=== PATIENT | female | born 1980 | race Caucasian/White ===

== ENCOUNTER 2017-07-03 12:35 | Inpatient (IN) | payer BC, OTHER ==
[2017-07-03 13:22] VITALS: BMI 35.5
[2017-07-03] MEDS ORDERED: TUBERCULIN PPD 5 TU/0.1ML SYRINGE (IN PATIENT USE ONLY) ID ONE (13:45)
[2017-07-03] MEDS ORDERED: ELECTROLYTE-148 SOLN 1,000 ML IV SCH ×2 (13:45→15:00)
[2017-07-03] MEDS ORDERED: CITRIC ACID/SODIUM CITRATE 30 ML UNIT-DOSE CUP PO ONE (13:45)
--- NOTE | 2017-07-03 15:02 | HP ---
Past Medical History - Primary Care Physician PCP:: Juan Jose Sanchez - Admission Chief Complaint: 39 weeks, previous c/s , reaquest of reperat c/s History of Present Illness: 36 yo f g 2 p1001 39 weeks, with previous c/s requesting repeat c/s risks discussed , cx clp, vx -3 mi History Source: Patient Limitations to Obtaining History: No Limitations - Past Medical History ...: 2 ...Para: 1 ...Term: 0 ...: 0 ...Spon : 0 ...Induced : 0 ...Multiple Gestation: 0 ...LMP: 10/01/16 ... Weeks Gestation by Dates: 39.2 ...EDC by Dates: 07/08/17 ...EDC by Sono: 07/08/17 Additional OB History: last baby has tetralogy Heme/Onc: Yes: Anemia - Past Surgical History Past Surgical History: Yes: Hx Myomectomy: No Hx Transabdominal Cerclage: No - Smoking History Smoking history: Never smoked Have you smoked in the past 12 months: No - Alcohol/Substance Use Hx Alcohol Use: No - Social History Usual Living Arrangement: Yes: With Spouse History of Recent Travel: No Home Medications - Allergies Allergies/Adverse Reactions: Allergies Allergy/AdvReac Type Severity Reaction Status Date / Time Sulfa (Sulfonamide Allergy Swelling Verified 07/03/17 13:02 Antibiotics) - Home Medications Home Medications: Ambulatory Orders Vitamins (Sjr) - 1 tab PO DAILY 02/17/14 Review of Systems - Review of Systems Constitutional: reports: No Symptoms Eyes: reports: No Symptoms HENT: reports: No Symptoms Neck: reports: No Symptoms Cardiovascular: reports: No Symptoms Respiratory: reports: No Symptoms Gastrointestinal: reports: No Symptoms Genitourinary: reports: No Symptoms Breasts: reports: No Symptoms Reported Musculoskeletal: reports: No Symptoms Integumentary: reports: No Symptoms Neurological: reports: No Symptoms Endocrine: reports: No Symptoms Hematology/Lymphatic: reports: No Symptoms Psychiatric: reports: No Symptoms Physical Exam - Maternity Vital Signs: Vital Signs Temperature 98.7 F 07/03/17 12:35 Pulse Rate 70 07/03/17 12:35 Respiratory Rate 20 07/03/17 12:35 Blood Pressure 118/72 07/03/17 12:35 O2 Sat by Pulse Oximetry (%) Constitutional: Yes: Well Nourished, No Distress, Calm Eyes: Yes: WNL, Conjunctiva Clear, EOM Intact HENT: Yes: WNL, Atraumatic, Normocephalic Neck: Yes: WNL, Supple, Trachea Midline Cardiovascular: Yes: WNL, Regular Rate and Rhythm Breast(s): Yes: WNL - Abdominal Exam/OB Fundal Height: 40 Number of Fetuses: Single Presentation: Vertex Contractions: Yes Regularity: Irregular Intensity: Unaware Monitor Mode: External Heart Rate Location: [facility] Category: I Accelerations: Uniform Decelerations: None - Vaginal Exam/OB Vaginal Bleediing: No Speculum Exam: No Dilatation (cm): closed Effacement (%): 0 Amniotic Membrane Status: Intact Presentation: Vertex/Position Station: -3 - Physical Exam Musculoskeletal: Yes: WNL Extremities: Yes: WNL Edema: Yes Edema: LLE: Trace, RLE: Trace Deep Tendon Reflex Grade: Normal +2 Hemorrhage Risk Assessment - Risk Factors Medium Risk Factors: Yes: None High Risk Factors: Yes: None Risk Score: 1 Risk Level: Medium Risk Problem List - Problems (1) with 39 completed weeks gestation Code(s): Z3A.39 - 39 WEEKS GESTATION OF (2) Previous section complicating , antepartum condition or complication Code(s): O34.219 - MATERNAL CARE FOR UNSP TYPE SCAR FROM PREVIOUS DEL Assessment/Plan repeat c/s , rba discussed , discussed
[2017-07-03] MEDS ORDERED: ONDANSETRON 4 MG/2 ML VIAL IVPB PRN (15:20)
[2017-07-03] MEDS ORDERED: IBUPROFEN 600 MG TABLET (FP) PO PRN (15:20)
[2017-07-03] MEDS ORDERED: oxyCODONE HCL 5 MG TABLET PO PRN ×2 (15:46)
[2017-07-03] MEDS ORDERED: METHYLERGONOVINE MALEATE 0.2 MG/1 ML AMP IM PRN (15:46)
[2017-07-03] MEDS ORDERED: diphenhydrAMINE HCL 25 MG CAPSULE (FP) PO PRN (15:46)
[2017-07-03] MEDS ORDERED: BENZOCAINE 28 GM HEMORRHOIDAL OINTMENT PR PRN (15:46)
[2017-07-03] MEDS ORDERED: BENZOCAINE 20% 57 GM BOTTLE TP PRN (15:46)
[2017-07-03] MEDS ORDERED: WITCH HAZEL 50% (TUCKS) 40 PAD/JAR PAD TP PRN (15:46)
[2017-07-03] MEDS ORDERED: OXYTOCIN 20 UNITS in 0.9% NS 1,000 ML IV SCH (16:00)
[2017-07-03] MEDS ORDERED: DEXTROSE 5%-LACTATED RINGERS 1,000 ML IV SCH (16:00)
[2017-07-03] MEDS: IBUPROFEN 800 MG/8 ML IJ IVPB PRN (16:47)
[2017-07-03] MEDS ORDERED: CEFAZOLIN (PRE-DOCKED) 50 ML IVPB SCH (18:00)
[2017-07-03] MEDS ORDERED: CEFAZOLIN 1 GM in DEXTROSE 5%-WATER - 50 ML IVPB SCH (18:17)
[2017-07-03] MEDS ORDERED: DEXTROSE 5%-WATER - 50 ML IVPB ONE (20:48)
[2017-07-03] MEDS ORDERED: ceFAZolin SODIUM 1 GM VIAL ONE (20:48)
[2017-07-03] MEDS: CEFAZOLIN 1 GM in DEXTROSE 5%-WATER - 50 ML IVPB SCH ×2 (20:52→22:11)
[2017-07-04] MEDS: IBUPROFEN 800 MG/8 ML IJ IVPB PRN (05:03)
[2017-07-04 08:35] LABS: BASOPHIL 1.4 % (0-2.0); MCH 24.3 pg (25.7-33.7); MEAN CELL VOLUME 76.1 fl (80-96); MEAN PLT VOLUME 7.3 fl (7.5-11.1); NEUTROPHILS 82.4 % (42.8-82.8); PLATELET COUNT 213 K/MM3 (134-434); RDW 16.5 % (11.6-15.6); WHITE BLOOD COUNT 11.9 K/mm3 (4.0-10.0)
--- NOTE | 2017-07-04 08:48 | PN ---
Progress Note (short form) - Note Progress Note: Anesthesia postop note 36 y/o F s/p spinal anesthesia duramorph for section POD#1, vss, aaox3, pain well controlled overnight, sensorymotor intact distally No anesthesia complications.
--- NOTE | 2017-07-04 09:06 | OP ---
DATE OF OPERATION: 07/03/2017 PREOPERATIVE DIAGNOSIS: , 39-week gestation, previous section, request of repeat section. POSTOPERATIVE DIAGNOSIS: , 39-week gestation, previous section, request of repeat section. PROCEDURE: Repeat low segment transverse section. SURGEON: Twyla Hardy MD HELPER [employer]ABRICATION: [place] George ANESTHESIA: Spinal. ANESTHESIOLOGIST: Suresh Smalls MD ESTIMATED BLOOD LOSS: 500 mL. FINDINGS: Live baby boy, 9, 9, ROT position. OPERATION: The patient was taken to the operating room, had adequate spinal anesthesia. Abdomen and perineum were prepped and draped. Pfannenstiel abdominal skin incision was made. Abdominal wall was cut layer by layer until peritoneum was exposed and incised. Upon entering the abdominal cavity, lower uterine segment was identified, and uterovesical fold of peritoneum was established, bladder was pushed down. Then, with the lower blade of the [place] retractor in the pelvis, a low transverse uterine incision was made. Amniotic sac was entered. Light meconium amniotic fluid was seen. Head delivered, nasopharynx was suctioned, and live baby boy was delivered without any difficulty. Placenta was delivered manually. Uterine cavity was cleaned of all remaining tissue. Uterine incision was closed in 2 layers, 1st layer with 0 Biosyn continuous suture, the 2nd layer with 0 Biosyn imbricating the 1st layer. Bladder flap was closed with 0 Biosyn continuous suture. Both tubes and ovaries were checked, were normal. No active bleeding was seen. All the lap pad, sponge, and instrument counts were correct. Then, peritoneum was closed with 0 Biosyn continuous suture, muscles were brought together with interrupted sutures of 0 Biosyn, fascia was closed with 0 Biosyn continuous suture, subcutaneous fat with interrupted suture of 0 Biosyn, and the skin was closed with 4-0 Biosyn subcuticular continuous suture. Patient tolerated the procedure well, left the OR in good condition. TWYLA HARDY M.D. [id number]
[2017-07-04] MEDS ORDERED: DEXTROSE 5%-WATER - 50 ML IVPB ONE (09:57)
[2017-07-04] MEDS ORDERED: ceFAZolin SODIUM 1 GM VIAL ONE (09:58)
[2017-07-04] MEDS ORDERED: DIPHTH,PERTUSS(ACELL),TET 0.5 ML DISP.SYRIN IM ONE ×2 (10:00→14:00)
[2017-07-04] MEDS: ENOXAPARIN NA (PORCINE) 40 MG/0.4 ML DISP.SYRIN SQ SCH (10:10)
[2017-07-04] MEDS: CEFAZOLIN 1 GM in DEXTROSE 5%-WATER - 50 ML IVPB SCH (10:10)
[2017-07-04] MEDS: ACETAMINOPHEN 325 MG TABLET (FP) PO PRN ×2 (12:07→21:36)
[2017-07-04] MEDS: SIMETHICONE 80 MG TAB.CHEW (FP) PO PRN ×3 (12:07→21:36)
[2017-07-04] MEDS ORDERED: BISACODYL 10 MG SUPP.RECT RC PRN (15:47)
[2017-07-04] MEDS: IBUPROFEN 600 MG TABLET (FP) PO PRN ×2 (16:20→21:37)
[2017-07-05] MEDS: IBUPROFEN 600 MG TABLET (FP) PO PRN ×4 (01:41→17:16)
[2017-07-05] MEDS: SIMETHICONE 80 MG TAB.CHEW (FP) PO PRN ×4 (01:41→17:15)
[2017-07-05] MEDS: ACETAMINOPHEN 325 MG TABLET (FP) PO PRN ×4 (01:41→17:17)
--- NOTE | 2017-07-05 08:27 | PN ---
Post Progress Note - Subjective Subjective: No complaints. Doing well. The pain is well controlled. Post Day: 2 Type of Delivery: Repeat C/S Vital Signs: Vital Signs Temperature 98.2 F 07/04/17 22:00 Pulse Rate 85 07/04/17 22:00 Respiratory Rate 20 07/04/17 22:00 Blood Pressure 100/75 07/04/17 22:00 O2 Sat by Pulse Oximetry (%) 100 07/03/17 16:40 Breast Exam: Yes: Soft Uterus: Yes: Fundus Firm, Fundus below umbilicus, Non-tender Incision: Yes: Sutures intact Abdomen/GI: Yes: Abdomen soft, Passing flatus, Tolerating PO Lochia: Yes: Rubra Lochia, amount: Small Extremities: Yes: Calves non-tender, Edema (trace bilaterally) Perineum: Yes: Intact Activity: Ambulating - Labs Labs: CBC WBC 11.9 K/mm3 (4.0-10.0) H 07/04/17 08:00 RBC 3.68 M/mm3 (3.60-5.2) 07/04/17 08:00 Hgb 9.0 GM/dL (10.7-15.3) L D 07/04/17 08:00 Hct 28.0 % (32.4-45.2) L 07/04/17 08:00 MCV 76.1 fl (80-96) L 07/04/17 08:00 MCH 24.3 pg (25.7-33.7) L 07/04/17 08:00 MCHC 32.0 g/dl (32.0-36.0) 07/04/17 08:00 RDW 16.5 % (11.6-15.6) H 07/04/17 08:00 Plt Count 213 K/MM3 (134-434) D 07/04/17 08:00 MPV 7.3 fl (7.5-11.1) L 07/04/17 08:00 Neutrophils % 82.4 % (42.8-82.8) 07/04/17 08:00 Lymphocytes % 9.8 % (8-40) D 07/04/17 08:00 Monocytes % 5.4 % (3.8-10.2) 07/04/17 08:00 Eosinophils % 1.0 % (0-4.5) 07/04/17 08:00 Basophils % 1.4 % (0-2.0) D 07/04/17 08:00 Assessment/Plan 36yo P2 s/p repeat LT C/S, doing well stable, afebrile. She is asymptomatic for anemia care instructions reviewed. Breast feeding discussed. Continue routine postop care. Ambulation encouraged.
[2017-07-05] MEDS: ENOXAPARIN NA (PORCINE) 40 MG/0.4 ML DISP.SYRIN SQ SCH (09:54)
[2017-07-05] MEDS ORDERED: SENNOSIDES/DOCUSATE COMBO (SENNA PLUS) TABLET (UD) PO PRN (22:00)
[2017-07-06] MEDS: ACETAMINOPHEN 325 MG TABLET (FP) PO PRN (00:56)
[2017-07-06] MEDS: IBUPROFEN 600 MG TABLET (FP) PO PRN (00:57)
[2017-07-06] MEDS: SIMETHICONE 80 MG TAB.CHEW (FP) PO PRN (00:57)
[2017-07-06 08:42] VITALS: BP 130/83; PULSE 95; TEMP 98
[2017-07-06 08:55] LABS: BASOPHIL 0.3 % (0-2.0); EOSINOPHIL 2.7 % (0-4.5); MCH 24.7 pg (25.7-33.7); MCHC 32.3 g/dl (32.0-36.0); MEAN CELL VOLUME 76.3 fl (80-96); MEAN PLT VOLUME 7.2 fl (7.5-11.1); NEUTROPHILS 79.7 % (42.8-82.8); PLATELET COUNT 250 K/MM3 (134-434); RDW 16.6 % (11.6-15.6); WHITE BLOOD COUNT 10.1 K/mm3 (4.0-10.0)
[2017-07-06] MEDS: ENOXAPARIN NA (PORCINE) 40 MG/0.4 ML DISP.SYRIN SQ SCH (10:02)
--- NOTE | 2017-07-06 14:06 | PATH ---
Surgical Pathology Report Patient Name: KENISHA COLVIN Med. Rec. #: [id number] /Age/Gender: 1980 (Age: 36) / F Account: [id number] Location: [facility] OBS/PROJECT ADMINISTRATIVE ASSISTANT Taken: 07/04/2017 Received: 07/04/2017 Reported: 07/06/2017 Physicians: Juan Jose Sanchez M.D. Specimen(s) Received PLACENTA Clinical History , previous 2013 Final Diagnosis PLACENTA, DELIVERY: FOCALLY DISRUPTED THIRD TRIMESTER PLACENTA WITH THREE VESSEL UMBILICAL CORD AND MECONIUM HISTIOCYTOSIS OF PLACENTAL MEMBRANES. Electronically Signed Anil Mcmahon M.D. Gross Description The specimen is received fresh labeled placenta and is a 441 gram, 19.0 x 15.0 x 2.2 cm. placenta with attached membranes and umbilical cord. The attached membranes are galeano, translucent with focal opacities and insert marginally. The umbilical cord measures 33 cm. in length and averages 1.0 cm. in diameter. The cord inserts eccentrically, 5 cm. to the nearest margin. No true knots or strictures are identified. Cut surface of the umbilical cord reveals 3 vessels. The surface is lawson-blue with minimal fibrin deposition and appropriate caliber vessels. The maternal surface is red-brown with focal defects. Sectioning reveals red-brown, spongy parenchyma. No lesions are identified. [employer] sections are submitted in three cassettes as follows: 1- membrane rolls and umbilical cord; 2-3- full thickness sections of placenta. 07/05/201707/05/2017
--- NOTE | 2017-07-06 17:40 | DS ---
Physical Exam-COOK FROZEN DESSERT Vital Signs: Vital Signs Temperature 98.0 F 07/06/17 08:35 Pulse Rate 95 H 07/06/17 08:35 Respiratory Rate 20 07/06/17 08:35 Blood Pressure 130/83 07/06/17 08:35 O2 Sat by Pulse Oximetry (%) 100 07/03/17 16:40 Constitutional: Yes: Well Nourished, No Distress, Calm Eyes: Yes: WNL, Conjunctiva Clear, EOM Intact HENT: Yes: WNL, Atraumatic, Normocephalic Neck: Yes: WNL, Supple, Trachea Midline Cardiovascular: Yes: WNL, Regular Rate and Rhythm Respiratory: Yes: WNL, Regular, CTA Bilaterally Gastrointestinal: Yes: WNL ...Rectal Exam: Yes: WNL Renal/: Yes: WNL ....Post : Yes: Uterus firm, Uterus non-tender, Slight lochia rubra Breast(s): Yes: WNL Musculoskeletal: Yes: WNL Extremities: Yes: WNL Edema: No Integumentary: Yes: WNL Wound/Incision: Yes: Clean/Dry, Well Approximated, Sutures Intact Neurological: Yes: WNL, Alert, Oriented ...Motor Strength: WNL Psychiatric: Yes: WNL, Alert, Oriented Labs: CBC, BMP 07/06/17 07:35 Delivery - Delivery Section: Repeat, Low Flap Transverse (no complication) Type of Anesthesia: Spinal Episiotomy/Laceration: None EBL (cc): 500 Delivery, Single - Stages of Labor Date of Delivery: 07/03/17 Time of Delivery: 15:11 Time Placenta Delivered: 15:13 Placenta: Yes: Expressed - Condition of Infant Cryptoanalysis Teacher/Charge Poster Present: Yes Name: Anne Jensen Infant Gender: Male Weight: 7 lb 9 oz Position: Right, OT Total Hours ROM (Hrs/Mins): 3MIN - 1 Minute Total Score: 9 5 Minutes Total Score: 9 - [place] Feeding Plan Initial Plan: Elected not to breastfeed exclusively throughout hospitalization Discharge Summary Reason For Visit: Procedures: Principal: repeat LST c/s Hospital Course: uneventful Condition: Good - Instructions Diet, Activity, Other Instructions: Physical activity Resume your normal everyday activity as tolerated no heavy lifting or exercise until seen by your surgeon. You may walk unlimited chavez of and climb stairs. You may resume driving the car when you feel safe and comfortable behind the wheel. No sexual activity as instructed. Wound care If you have a bandage, leave it on, and keep dry for 48-72 hours. After that time discard the outer bandage. If they are tapes on the skin under the out of bandage leave them in place. They will peel off in the next 7 to 10 days. Do Not Peel them off. You may shower the day after surgery. If there are tapes present on the skin, you may shower over them. Diet There are no dietary restrictions. Eat healthy, high-fiber foods. Drink 6 to 8 glasses of liquid each day. This will assist in keeping your bowels are regular. Pain management You may take Tylenol or acetaminophen or Ibuprofen (for example, Motrin, Advil etc.) from my pain prescription medication is ordered should be taken as prescribed for moderate to severe pain. Call MD for any of the following: Severe pain not relieved by medication Fever of 101 or higher Excessive bleeding or drainage on dressing Inability to urinate Referrals: Juan Jose Sanchez MD [Staff Physician] - Disposition: HOME - Home Medications Comprehensive Discharge Medication List: Ambulatory Orders Vitamins (Sjr) - 1 tab PO DAILY 02/17/14
== END 2017-07-06 12:30 | disposition home or self-care (01) | DRG 766 ==
LOC: JLDR 12:35 → J3W 17:10
PROVIDERS: ADMIT Obstetrics & Gynecology; ATTEND Obstetrics & Gynecology
PROC: 10D00Z1 Extraction of Products of Conception, Low, Open Approach (ICD-10-PCS; principal; 2017-07-03)
DX: O34.211 Maternal care for low transverse scar from previous cesarean delivery (principal); N85.8 Other specified noninflammatory disorders of uterus; Z3A.39 39 weeks gestation of pregnancy; Z37.0 Single live birth
CPT/HCPCS: 36415; 85025; 88307-TC; 90715